=== PATIENT | male | born 1990 | race Caucasian/White ===

== ENCOUNTER 2018-02-12 20:41 | Emergency (ER) | payer SELFPAY ==
[2018-02-12 22:03] LABS: Urine Blood NEGATIVE (NEG); Urine Glucose NEGATIVE (NEG); Urine Protein NEGATIVE (NEG); Urine Specific Gravity 1.015 (1.005-1.030); Urine pH 6.5 (5.0-7.0)
[2018-02-12 22:19] LABS: Barbiturates NEGATIVE; Benzodiazepines NEGATIVE; Cocaine NEGATIVE; METHAMPHETAM NEGATIVE; Opiates NEGATIVE; Phencyclidine NEGATIVE; THC Cannibis NEGATIVE
[2018-02-12 22:21] LABS: Bicarbonate 28 mEq/L (21-31); Glucose Level 98 mg/dL (65-120); Potassium 4.1 mEq/L (3.6-5.0); Sodium Level 138 mEq/L (135-145)
[2018-02-12 22:27] LABS: ALT/SGPT 37 IU/L (10-60); AST/SGOT 26 IU/L (10-42); Albumin 4.9 g/dL (3.2-5.5); Alkaline Phosphatase 70 IU/L (42-121); BUN Blood Urea Nitrogen 10 mg/dL (6-20); Bilirubin Direct 0.1 mg/dL (0-0.2); Bilirubin Total 0.6 mg/dL (0.3-1.2); Glomerular Filtration Rate > 90 mL/min (=/>90); Protein, Total 8.2 g/dL (6.0-8.3)
[2018-02-12 22:28] LABS: Salicylates Level < 4.0 mg/dl (<30)
[2018-02-12 22:35] LABS: Absolute Lymphocytes (CBC) 2.6 K/uL (0.7-4.9); Absolute Monocytes 0.6 K/uL (0.1-1.3); Absolute Neutrophil 7.3 K/uL (1.8-8.0); Basophils % 0.1 % (0-1.3); Eosinophils % 0.8 % (0-4.4); Hematocrit 49.5 % (39.6-49.0); Lymphocytes % 24.6 % (15.3-44.8); MCH 31.4 pg (27.0-35.0); MCV 92.2 fL (80-100); MPV 7.8 fL (7.6-11.3); Monocytes % 5.6 % (3.3-12.3); Protime INR 1.11; RBC Red Blood Cell Count 5.37 M/uL (4.33-5.43)
[2018-02-12 22:39] LABS: Alcohol Serum/Plasma < 10 mg/dl
--- NOTE | 2018-02-12 22:50 | ER ---
Nurse's Notes [facility] Name: Danyel Hernández Age: 27 yrs Sex: Male : 1990 Arrival Date: 02/12/2018 Time: 20:42 Bed 5 Private MD: Diagnosis: Adjustment disorder with depressed mood Presentation: 02/12 21:38 Presenting complaint: Patient states: I called the crisis hotline because I've been tl2 going through some things and my family basically just wants me to kill myself. I've tried to kill myself three times today. Small scratches noted on left wrist. Pt is wanting evaluation by [facility] and to get support from his family. Friend with pt at bedside. Transition of care: patient was not received from another setting of care. Onset of symptoms was February 12, 2018. Care prior to arrival: None. 21:38 Method Of Arrival: Ambulatory tl2 21:38 Acuity: VALENCIA 2 tl2 Triage Assessment: 21:41 General: Appears in no apparent distress. Behavior is cooperative, appropriate for age, tl2 anxious. Pain: Denies pain. Neuro: Level of Consciousness is awake, alert, obeys commands, Oriented to person, place, time, situation. Cardiovascular: Denies chest pain. Respiratory: Airway is patent Respiratory effort is even, unlabored, Respiratory pattern is regular, symmetrical. GI: No signs and/or symptoms were reported involving the gastrointestinal system. : No signs and/or symptoms were reported regarding the genitourinary system. Derm: Skin is pink, warm \\T\\ dry. Historical: - Allergies: 21:41 No Known Allergies; tl2 - Home Meds: 21:41 None [Active]; tl2 - PMHx: 21:41 Bipolar disorder; Anxiety; tl2 - Immunization history:: Adult Immunizations up to date. - Social history:: Smoking status: Patient/guardian denies using tobacco, Patient/guardian denies using alcohol. Screenin:43 Abuse screen: Denies threats or abuse. Nutritional screening: No deficits noted. tl2 Tuberculosis screening: No symptoms or risk factors identified. Fall Risk None identified. Assessment: 21:43 General: see triage assessment. tl2 22:20 Reassessment: ERP at bedside. pt decided to take out his own IV. pt stated "I don't ak1 need to be here" pt leaving AMA. pt signed AMA form and family and pt informed of what AMA form is for. pt left with family. Psych: 21:43 Subjective: Patient's mood is hopeless, Delusions are denied, Hallucinations are denied tl2 Having thoughts of suicide. Plan for suicide is Pt states he is ex and has several ways he could kill himself. Objective: Patient is cooperative, irritable, restless, Speech is normal, Affect is appropriate, Patient has mutilated themselves by superficial lacerations to left wrist. Interventions: Removed personal items and placed in bag. Patient placed in hospital gown. Urine collected and sent for urine drug test. Suicide Risk Assessment: Sad Person Scale: Sex of patient: Male: Score 1 point. Age of patient: Score 1 point if patient 15-34. Depression: Score 1 point if signs of depression are present. Previous Attempt: Score 1 point if patient has previously attempted suicide. Substance Abuse: Score 0 point if patient does not abuse alcohol or drugs. Rational Thinking: Score 0 point if patient has rational thinking. Social Support: Score 1 point if social support is lacking and/or unavailable. Organized Plan: Score 1 point if patient had a plan in place. Relationship: Score 1 point if patient is , , , or for a single male Chronic Sickness: Score 0 point if patient does not have a chronic illness, debilitating, or severe disorder. TOTAL POINTS: If total points are 7-10, the proposed clinical action is to hospitalize or commit. Implement suicide precautions. Safety Checks: Personal items have been removed. Door is open. Visitors are present. Pt denies substance abuse. Commitment: Patient will be a voluntary commitment. Vital Signs: 21:41 BP 148 / 97; Pulse 96; Resp 18; Temp 98.4; Pulse Ox 96% on R/A; Weight 117.93 kg; tl2 Height 5 ft. 10 in. (177.80 cm); Pain 0/10; 21:41 Body Mass Index 37.31 (117.93 kg, 177.80 cm) tl2 ED Course: 20:42 Patient arrived in ED. am2 21:29 Luc Evans MD is Attending Physician. gs 21:38 Zora Travis RN is Primary Nurse. tl2 21:41 Triage completed. tl2 21:41 Arm band placed on right wrist. tl2 21:43 Patient has correct armband on for positive identification. Bed in low position. Call tl2 light in reach. Side rails up X 1. Adult w/ patient. 21:49 Inserted saline lock: 20 gauge in left antecubital area, using aseptic technique. Blood ak1 collected. 21:49 Urine collected: clean catch specimen, clear, Amount Voided: 100mL EKG done, by ED ak1 staff, reviewed by Luc Evans MD. 22:22 No provider procedures requiring assistance completed. IV discontinued, intact, ak1 bleeding controlled, No redness/swelling at site. Pressure dressing applied. 02/13 02:00 Primary Nurse role handed off by oZra Travis RN gs Administered Medications: No medications were administered Outcome: 02/12 22:22 AMA AMA form signed ak1 Condition: unchanged 22:50 Patient left the ED. ak1 02/13 02:01 Patient left the ED. Signatures: Luzmaria Cash RN RN ak1 Zora Travis RN RN tl2 Ruma Howell am2 Luc Evans MD MD
[2018-02-12 22:56] VITALS: BP 148/97; TEMP 98.4; O2SAT 96
--- NOTE | 2018-02-13 02:02 | EDPHYS ---
Physician Documentation [facility] Name: Danyel Hernández Age: 27 yrs Sex: Male : 1990 Arrival Date: 02/12/2018 Time: 20:42 Bed 5 Private MD: ED Physician Luc Evans HPI: 02/13 01:56 This 27 yrs old Male presents to ER via Ambulatory with complaints of Psych gs Problem. 01:56 The patient presents to the emergency department with depression, over a relationship, gs suicide ideation, but the patient has no formulated plan. Onset: The symptoms/episode began/occurred acutely, today, yesterday. Past psychiatric history: Prior diagnosis: bipolar disorder, Psychiatric medications include: none. Associated signs and symptoms: Pertinent positives; depression, Pertinent negatives: chest pain. Severity of symptoms: At their worst the symptoms were moderate in the emergency department the symptoms have improved markedly. The patient has experienced similar episodes in the past, several times. Historical: - Allergies: 02/12 21:41 No Known Allergies; tl2 - Home Meds: 21:41 None [Active]; tl2 - PMHx: 21:41 Bipolar disorder; Anxiety; tl2 - Immunization history:: Adult Immunizations up to date. - Social history:: Smoking status: Patient/guardian denies using tobacco, Patient/guardian denies using alcohol. ROS: 02/13 01:56 All other systems are negative. gs Exam: 01:56 Head/Face: Normocephalic, atraumatic. Eyes: Pupils equal round and reactive to light, gs extra-ocular motions intact. Lids and lashes normal. Conjunctiva and sclera are non-icteric and not injected. Cornea within normal limits. Periorbital areas with no swelling, redness, or edema. ENT: Nares patent. No nasal discharge, no septal abnormalities noted. Tympanic membranes are normal and external auditory canals are clear. Oropharynx with no redness, swelling, or masses, exudates, or evidence of obstruction, uvula midline. Mucous membranes moist. Neck: Trachea midline, no thyromegaly or masses palpated, and no cervical lymphadenopathy. Supple, full range of motion without nuchal rigidity, or vertebral point tenderness. No Meningismus. Chest/axilla: Normal chest wall appearance and motion. Nontender with no deformity. No lesions are appreciated. Cardiovascular: Regular rate and rhythm with a normal S1 and S2. No gallops, murmurs, or rubs. Normal PMI, no JVD. No pulse deficits. Respiratory: Lungs have equal breath sounds bilaterally, clear to auscultation and percussion. No rales, rhonchi or wheezes noted. No increased work of breathing, no retractions or nasal flaring. Abdomen/GI: Soft, non-tender, with normal bowel sounds. No distension or tympany. No guarding or rebound. No evidence of tenderness throughout. Back: No spinal tenderness. No costovertebral tenderness. Full range of motion. Skin: Warm, dry with normal turgor. Normal color with no rashes, no lesions, and no evidence of cellulitis. 01:56 Neuro: Awake and alert, GCS 15, oriented to person, place, time, and situation. Cranial nerves II-XII grossly intact. Motor strength 5/5 in all extremities. Sensory grossly intact. Cerebellar exam normal. Normal gait. 01:56 Constitutional: The patient appears alert, awake. 01:56 Musculoskeletal/extremity: Circulation is intact in all extremities. Nails: superficial laceration volar wrist. 01:56 Psych: Behavior/mood is pleasant, Affect is calm, Oriented to person, place, time, Patient has no thoughts/intents to harm self or others. Judgement / Insight is impaired. Delusions/hallucinations are not present. pt has no plan, guns were conficated by police has [facility] appt on Friday has support and someone to watch him. refuses further treatment denies active suicide homocide plan. leaving against medical advice. Vital Signs: 02/12 21:41 BP 148 / 97; Pulse 96; Resp 18; Temp 98.4; Pulse Ox 96% on R/A; Weight 117.93 kg; tl2 Height 5 ft. 10 in. (177.80 cm); Pain 0/10; 21:41 Body Mass Index 37.31 (117.93 kg, 177.80 cm) tl2 MDM: 21:55 Patient medically screened. 02/13 01:56 Differential diagnosis: acute psychotic break, depression, psychosis secondary to gs non-compliance. Data reviewed: vital signs, nurses notes. 02/12 21:55 Order name: Acetaminophen 02/12 21:55 Order name: Basic Metabolic Panel 02/12 21:55 Order name: CBC with Diff 02/12 21:55 Order name: ETOH Level 02/12 21:55 Order name: Hepatic Function 02/12 21:55 Order name: PT-INR 02/12 21:55 Order name: Salicylate 02/12 21:55 Order name: Urine Drug Screen 02/12 22:00 Order name: Urine Dipstick--Ancillary (enter results) 2 02/12 22:04 Order name: Urine Dipstick-Ancillary EDNC 02/12 22:19 Order name: Urine Drug Screen EDNC 02/12 22:22 Order name: Basic Metabolic Panel EDNC 02/12 22:29 Order name: Liver (Hepatic) Function EDNC 02/12 22:29 Order name: Acetaminophen Level EDNC 02/12 21:55 Order name: EKG; Complete Time: 21:56 02/12 21:55 Order name: EKG - Nurse/Tech; Complete Time: 21:57 02/12 21:55 Order name: IV Saline Lock; Complete Time: 21:57 02/12 21:55 Order name: Labs collected and sent; Complete Time: 22:01 02/12 21:55 Order name: Urine Dipstick-Ancillary (obtain specimen); Complete Time: 21:57 02/12 22:29 Order name: Salicylates Level EDNC 02/12 22:36 Order name: CBC with Automated Diff EDNC 02/12 22:36 Order name: Protime (+INR) EDNC 02/12 22:39 Order name: Alcohol Serum/Plasma EDMS Administered Medications: No medications were administered Disposition: 02/12/18 22:50 Patient has left against medical advice. Impression: Adjustment disorder with depressed mood. - Patients states they are going to Home. - Condition is Stable. - Problem is an acute exacerbation. - Symptoms have improved. Signatures: Dispatcher [employer] EDMS Luzmaria Cash RN RN ak1 Zora Travis RN RN tl2 Luc Evans MD MD
--- NOTE | 2018-02-13 07:56 | EKG ---
Test Date: 2018-02-12 Test Time: 21:36:41 Global Lead: KALEY MEASUREMENT RESULTS: Intervals: Rate: 88 AL: 148 QRSD: 76 QT: 336 QTc: 406 [place]: P: 55 AL: 148 QRS: 39 T: 49 INTERPRETIVE STATEMENTS: Normal sinus rhythm normal ECG No previous ECG available for comparison Electronically Signed On 02-13-18 07:56:34 CDT by Michael Tsai
== END 2018-02-13 02:01 | disposition left against medical advice (07) ==
LOC: ER 20:41
DX: F43.21 Adjustment disorder with depressed mood (principal); F31.9 Bipolar disorder, unspecified
CPT/HCPCS: 36415; 80048; 80076; 80307; 80320; 80329; 81003; 85025; 85610; 93005; 99284

== ENCOUNTER 2018-02-26 23:19 | Emergency (ER) | payer SELFPAY ==
--- NOTE | 2018-02-27 00:45 | EDPHYS ---
Physician Documentation [facility] Name: Danyel Hernández Age: 27 yrs Sex: Male : 1990 Arrival Date: 02/26/2018 Time: 23:21 Bed 20 Private MD: ED Physician Luc Evans HPI: 02/26 23:41 This 27 yrs old Male presents to ER via EMS with complaints of head pain. gs 23:41 The complaints affect the forehead, left frontal area, left side of forehead and left gs temporal area. Context of injury: The problem was sustained at [facility] hit head says doesn't want to live anymore is suicidal. Onset: The symptoms/episode began/occurred acutely. Associated signs and symptoms: Pertinent positives: dazed, headache. Severity of symptoms: At their worst the symptoms were moderate, in the emergency department the symptoms are unchanged. Historical: - Allergies: 23:27 No Known Allergies; fc - Home Meds: 23:27 None [Active]; fc - PMHx: 23:27 Anxiety; Bipolar disorder; Depression; fc - PSHx: 23:27 None; fc - Immunization history:: Last tetanus immunization: up to date. - Social history:: Smoking status: Patient/guardian denies using tobacco, Patient/guardian denies using alcohol, street drugs. ROS: 23:41 Psych: Positive for suicide gesture, suicidal ideation. gs 23:41 All other systems are negative. Exam: 23:41 Head/Face: Normocephalic, atraumatic. Eyes: Pupils equal round and reactive to light, gs extra-ocular motions intact. Lids and lashes normal. Conjunctiva and sclera are non-icteric and not injected. Cornea within normal limits. Periorbital areas with no swelling, redness, or edema. ENT: Nares patent. No nasal discharge, no septal abnormalities noted. Tympanic membranes are normal and external auditory canals are clear. Oropharynx with no redness, swelling, or masses, exudates, or evidence of obstruction, uvula midline. Mucous membranes moist. Neck: Trachea midline, no thyromegaly or masses palpated, and no cervical lymphadenopathy. Supple, full range of motion without nuchal rigidity, or vertebral point tenderness. No Meningismus. Chest/axilla: Normal chest wall appearance and motion. Nontender with no deformity. No lesions are appreciated. Cardiovascular: Regular rate and rhythm with a normal S1 and S2. No gallops, murmurs, or rubs. Normal PMI, no JVD. No pulse deficits. Respiratory: Lungs have equal breath sounds bilaterally, clear to auscultation and percussion. No rales, rhonchi or wheezes noted. No increased work of breathing, no retractions or nasal flaring. Abdomen/GI: Soft, non-tender, with normal bowel sounds. No distension or tympany. No guarding or rebound. No evidence of tenderness throughout. Back: No spinal tenderness. No costovertebral tenderness. Full range of motion. Skin: Warm, dry with normal turgor. Normal color with no rashes, no lesions, and no evidence of cellulitis. MS/ Extremity: Pulses equal, no cyanosis. Neurovascular intact. Full, normal range of motion. Neuro: Awake and alert, GCS 15, oriented to person, place, time, and situation. Cranial nerves II-XII grossly intact. Motor strength 5/5 in all extremities. Sensory grossly intact. Cerebellar exam normal. Normal gait. 23:41 Constitutional: The patient appears alert, awake. Vital Signs: 23:20 BP 130 / 76; Pulse 99; Resp 18; Temp 97.5(O); Pulse Ox 96% on R/A; Weight 117.93 kg fc (R); Height 5 ft. 10 in. (177.80 cm) (R); Pain 9/10; 02/27 00:17 BP 119 / 76; Pulse 89; Resp 18; Pulse Ox 99% on R/A; ea 00:59 BP 108 / 53; Pulse 60; Resp 18 S; Temp 98.7(O); Pulse Ox 99% on R/A; ea 02/26 23:20 Body Mass Index 37.31 (117.93 kg, 177.80 cm) Luis Coma Score: 02/26 23:41 Eye Response: spontaneous(4). Verbal Response: oriented(5). Motor Response: obeys commands(6). Total: 15. MDM: 23:31 Patient medically screened. 23:41 Differential diagnosis: Hematoma on Intracranial bleed- Concussion. Data reviewed: vital signs, nurses notes. 02/27 00:44 ED course: pt in custody will receive mental marino eval at [facility]. 02/26 23:31 Order name: CT Head C Spine Administered Medications: No medications were administered Disposition: 02/27/18 00:45 Discharged to Home. Impression: Contusion of other part of head, Suicidal ideations, Suicide attempt. - Condition is Stable. - Discharge Instructions: Depression, Adult, Head Injury, Adult. - Medication Reconciliation Form, Thank You Letter, Antibiotic Education, Prescription Opioid Use form. - Follow up: Private Physician; When: 2 - 3 days; Reason: Re-evaluation by your physician. Signatures: Dispatcher [employer] EDLuz Bosch RN RN Zainab Buck RN RN ea Starr, Gregory, MD MD
--- NOTE | 2018-02-27 00:45 | ER ---
Nurse's Notes [facility] Name: Danyel Hernández Age: 27 yrs Sex: Male : 1990 Arrival Date: 02/26/2018 Time: 23:21 Bed 20 Private MD: Diagnosis: Contusion of other part of head;Suicidal ideations;Suicide attempt Presentation: 02/26 23:20 Presenting complaint: EMS states: that pt became frustrated and started to hit head on fc bunk in cell. Has bump to left side of scalp. Possible LOC. He is sensitive to light and is seeing spots. Denies being suicidal. Transition of care: patient was not received from another setting of care. Onset of symptoms was February 26, 2018 at 22:55. Care prior to arrival: None. 23:20 Method Of Arrival: EMS: [facility] 23:20 Acuity: VALENCIA 3 fc Historical: - Allergies: 23:27 No Known Allergies; fc - Home Meds: 23:27 None [Active]; fc - PMHx: 23:27 Anxiety; Bipolar disorder; Depression; fc - PSHx: 23:27 None; fc - Immunization history:: Last tetanus immunization: up to date. - Social history:: Smoking status: Patient/guardian denies using tobacco, Patient/guardian denies using alcohol, street drugs. Screenin:20 Nutritional screening: No deficits noted. Tuberculosis screening: No symptoms or risk fc factors identified. Fall Risk None identified. 02/27 00:37 Abuse screen: Denies threats or abuse. ea Assessment: 02/26 23:26 General: Appears uncomfortable, Behavior is calm, cooperative. Pain: Complains of pain ea in headache. Neuro: Level of Consciousness is awake, alert, obeys commands, Oriented to person, place, time, situation, pt reports sensitivity to light. Cardiovascular: Heart tones present Patient's skin is warm and dry. Respiratory: Airway is patent Respiratory effort is even, unlabored, Respiratory pattern is regular, symmetrical, Breath sounds are clear bilaterally. GI: No signs and/or symptoms were reported involving the gastrointestinal system. : No signs and/or symptoms were reported regarding the genitourinary system. EENT: No signs and/or symptoms were reported regarding the EENT system. Derm: Skin is pink, warm \T\ dry. 23:53 Reassessment: Patient is alert, oriented x 3, equal unlabored respirations, skin ea warm/dry/pink. Pt returned from CT. PD at bedside. 02/27 00:17 Reassessment: Patient and/or family updated on plan of care and expected duration. Pain ea level reassessed. Patient is alert, oriented x 3, equal unlabored respirations, skin warm/dry/pink. PD at bedside. 00:57 Reassessment: Patient and/or family updated on plan of care and expected duration. Pain ea level reassessed. Patient is alert, oriented x 3, equal unlabored respirations, skin warm/dry/pink. Discharge instruction given to patient, verbalized the understanding of instruction. Vital Signs: 02/26 23:20 BP 130 / 76; Pulse 99; Resp 18; Temp 97.5(O); Pulse Ox 96% on R/A; Weight 117.93 kg fc (R); Height 5 ft. 10 in. (177.80 cm) (R); Pain 9/10; 02/27 00:17 BP 119 / 76; Pulse 89; Resp 18; Pulse Ox 99% on R/A; ea 00:59 BP 108 / 53; Pulse 60; Resp 18 S; Temp 98.7(O); Pulse Ox 99% on R/A; ea 02/26 23:20 Body Mass Index 37.31 (117.93 kg, 177.80 cm) [place] Coma Score: 02/26 23:41 Eye Response: spontaneous(4). Verbal Response: oriented(5). Motor Response: obeys gs commands(6). Total: 15. ED Course: 23:20 Arm band placed on Patient placed in an exam room, on a stretcher. fc 23:20 Patient has correct armband on for positive identification. Bed in low position. Call fc light in reach. Side rails up X2. [place] police patrol lieutenant at bedside. 23:21 Patient arrived in ED. ds1 23:22 Luc Evans MD is Attending Physician. gs 23:24 Zainab Gil, CHITRA is Primary Nurse. ea 23:25 Triage completed. fc 23:26 No provider procedures requiring assistance completed. fc 23:30 Safety Checks: Personal items have been removed Pt has no items in his possession, PD ea at bedside. The door is open or patient has been placed in a hallway bed/chair. A family member and/or friend is present and encouraged to stay. 23:45 Safety Checks: Personal items have been removed The door is open or patient has been ea placed in a hallway bed/chair. A family member and/or friend is present and encouraged to stay. 23:56 CT Head C Spine In Process Unspecified. [facility] 02/27 00:00 Safety Checks: Personal items have been removed The door is open or patient has been ea placed in a hallway bed/chair. A family member and/or friend is present and encouraged to stay. 00:15 Safety Checks: Personal items have been removed The door is open or patient has been ea placed in a hallway bed/chair. A family member and/or friend is present and encouraged to stay. 00:30 Safety Checks: Personal items have been removed The door is open or patient has been ea placed in a hallway bed/chair. A family member and/or friend is present and encouraged to stay. 00:58 Patient did not have IV access during this emergency room visit. ea Administered Medications: No medications were administered Outcome: 00:45 Discharge ordered by . 00:58 Discharged to Law Enforcement 00:58 Condition: improved 00:58 Discharge instructions given to patient, Instructed on discharge instructions, follow up and referral plans. Demonstrated understanding of instructions, follow-up care. 01:00 Patient left the ED. ea Signatures: Dispatcher [employer] [facility] Luz Jimenez RN RN fc [place], Demi ds1 Zainab Gil RN RN ea Starr, Gregory, MD MD gs Corrections: (The following items were deleted from the chart) 02/26 23:35 23:26 Derm: Skin is pink, warm \T\ dry. deandre carrera 02/27 00:17 04 23:53 Reassessment: Patient is alert, oriented x 3, equal unlabored respirations, ea skin warm/dry/pink. Pt returned from CT. deandre 02/27 01:00 00:59 BP 108 / 53; Pulse 60bpm; Resp 18bpm; Spontaneous; Pulse Ox 99% RA; deandre carrera
[2018-02-27 01:05] VITALS: O2SAT 99
[2018-02-27 01:06] VITALS: BP 108/53; TEMP 98.7
--- NOTE | 2018-02-27 08:47 | RAD REPORT ---
EXAM DESCRIPTION: CT - [id number] - 02/27/2018 6:12 am CLINICAL HISTORY: Trauma, head and neck injury. COMPARISON: None. TECHNIQUE: Axial 5 mm thick images of the head were obtained. Axial 2 mm thick images of the cervical spine were obtained with sagittal and coronal reconstruction images generated and reviewed. All CT scans are performed using dose optimization technique as appropriate and may include automated exposure control or mA/KV adjustment according to patient size. FINDINGS: CT HEAD WITHOUT CONTRAST: No acute hemorrhage, hydrocephalus or extra-axial collection is identified.No areas of brain edema or midline shift. The paranasal sinuses and mastoids are clear.The calvarium is intact. CT CERVICAL SPINE WITHOUT CONTRAST: No fracture or subluxation.No prevertebral soft tissues swelling is identified. IMPRESSION: No acute intracranial or cervical spine findings.
== END 2018-02-27 01:00 | disposition home or self-care (01) ==
LOC: ER 23:19
DX: T14.91XA Suicide attempt, initial encounter (principal); X83.8XXA Intentional self-harm by other specified means, initial encounter; Y93.89 Activity, other specified; Y92.149 Unspecified place in prison as the place of occurrence of the external cause
CPT/HCPCS: 70450; 72125; 99283